=== PATIENT | female | born 1955 | race Caucasian/White ===

== ENCOUNTER 2019-06-20 17:09 | Inpatient (IN) | payer MEDICARE, OTHER ==
[~2019-06-20] VITALS: Ht 175.3 cm; Wt 96.2 kg
[~2019-06-20 17:09] MED LIST: DULO-31 PO; ESTR1PAT; HYDR2TAB28 PO; LORA1TAB PO; PROG100C11 PO; THY60T PO; TOP100T PO
[2019-06-20 17:46] LABS: BASOPHILS % (AUTO) 0.3 % (0-1); EOSINOPHILS % (AUTO) 0.3 % (0-6); HEMATOCRIT 39.5 % (35.0-45.0); HEMOGLOBIN 13.2 g/dl (12.0-16.0); LYMPHOCYTES # (AUTO) 1.3 X10'3 (1.1-4.8); LYMPHOCYTES % (AUTO) 10.7 % (21-51); MEAN CORPUSCULAR HEMOGLOBIN 28.4 PG (27.0-31.0); MEAN CORPUSCULAR HGB CONC 33.5 g/dL (33.0-36.5); MEAN CORPUSCULAR VOLUME 84.7 FL (78-98); MEAN PLATELET VOLUME 9.8 FL (7.4-10.4); MONOCYTES # (AUTO) 0.6 X10'3 (0-0.9); MONOCYTES % (AUTO) 5.1 % (2-12); NEUTROPHILS % (AUTO) 83.6 % (42-75); PLATELET COUNT 217 X10'3 (140-440); RED BLOOD COUNT 4.66 X10'6 (4.20-5.60); RED CELL DISTRIBUTION WIDTH 13.4 % (11.5-14.5); WHITE BLOOD COUNT 11.9 X10'3 (4.5-11.0)
[2019-06-20 18:01] LABS: ALANINE AMINOTRANSFERASE 30 U/L (12-78); ALBUMIN 3.9 G/DL (3.4-5.0); ALBUMIN/GLOBULIN RATIO 1.2 (1.1-1.5); ALKALINE PHOSPHATASE 91 IU/L (46-116); AMYLASE 63 U/L (25-115); ANION GAP 4 (8-16); ASPARTATE AMINO TRANSFERASE 13 U/L (10-37); BILIRUBIN,TOTAL 0.2 MG/DL (0.1-1.0); BLOOD UREA NITROGEN 17 MG/DL (7-18); BUN/CREATININE RATIO 15.3 (6.6-38.0); CALCIUM 9.1 MG/DL (8.5-10.1); CHLORIDE 103 MMOL/L (99-107); CREATININE 1.11 MG/DL (0.40-0.90); GLUCOSE 103 MG/DL (70-104); LIPASE 106 U/L (73-393); SODIUM 137 MMOL/L (135-145); TOTAL CARBON DIOXIDE 30.3 MMOL/L (24-32); TOTAL PROTEIN 7.2 G/DL (6.4-8.2); eGFR 49 ML/MIN
[2019-06-20 18:49] LABS: CLARITY,URINE CLEAR (Clear); COLOR,URINE STRAW (Yellow); GLUCOSE, URINE NEGATIVE (Neg); KETONES,URINE NEGATIVE (Neg); LEUKOCYTE ESTERASE ,URINE NEGATIVE (Neg); NITRITES, URINE NEGATIVE (Neg); OCCULT BLOOD,URINE SMALL (Neg); PROTEIN,URINE NEGATIVE (Neg); UROBILINOGEN,URINE 0.2 E.U/dL (0.2-1.0)
[2019-06-20 18:50] LABS: UA COLLECTION TYPE CLN CATCH MIDSTREAM
[2019-06-20 18:57] LABS: BACTERIA,URINE NONE SEEN /HPF (Neg); RBC,URINE 0-2 /HPF (0-2); WBC,URINE NONE SEEN /HPF (0-4)
[2019-06-20 18:58] LABS: SQUAMOUS EPITHELIAL CELL,UR NONE SEEN /LPF (FEW)
[2019-06-20] MEDS ORDERED: ketorolac trometh. 30mg/ml inj. IM ONE (19:15)
[2019-06-20] MEDS ORDERED: normal saline 1000ML IV soln IVB ONE (22:00)
[2019-06-20] MEDS ORDERED: morphine 2 MG/ML inj. syringe IV ONE ×2 (22:50)
[2019-06-20] MEDS ORDERED: iohexol 300mg/ml 100ml inj. ONE (23:08)
[2019-06-21] VITALS (15 sets, daily range): BP systolic 129–187; BP diastolic 62–96
[2019-06-21] MEDS: piperacillin/tazo 3.375gm/50ml 50 ML IV SCH ×3 (00:11→15:26)
[2019-06-21] MEDS ORDERED: ondansetron/PF 4mg/2ml inj IV PRN ×3 (00:40→17:40)
[2019-06-21] MEDS ORDERED: salt irrigation nasal spray 45 ML SPRAY NS PRN (00:55)
[2019-06-21] MEDS: normal saline 1000ml 1,000 ML IV SCH ×3 (01:05→20:37)
--- NOTE | 2019-06-21 01:48 | NUR ---
Patient in room ED 2. I have received report from [facility] and had the opportunity to ask questions and assume patient care.
[2019-06-21] MEDS ORDERED: SYN0.088T PO (02:15)
[2019-06-21] MEDS ORDERED: ARIP10TA15 PO (02:17)
[2019-06-21] MEDS ORDERED: QUET400T5 PO (02:17)
[2019-06-21] MEDS: morphine 2 MG/ML inj. syringe IV PRN ×5 (02:46→20:35)
[2019-06-21 04:53] LABS: BASOPHILS % (AUTO) 0.6 % (0-1); EOSINOPHILS % (AUTO) 0.3 % (0-6); HEMATOCRIT 40.7 % (35.0-45.0); LYMPHOCYTES # (AUTO) 1.3 X10'3 (1.1-4.8); LYMPHOCYTES % (AUTO) 16.5 % (21-51); MEAN CORPUSCULAR HEMOGLOBIN 28.7 PG (27.0-31.0); MEAN CORPUSCULAR HGB CONC 34.3 g/dL (33.0-36.5); MEAN CORPUSCULAR VOLUME 83.6 FL (78-98); MEAN PLATELET VOLUME 10.1 FL (7.4-10.4); MONOCYTES # (AUTO) 0.3 X10'3 (0-0.9); MONOCYTES % (AUTO) 4.1 % (2-12); NEUTROPHILS # (AUTO) 6.3 X10'3 (1.8-7.7); NEUTROPHILS % (AUTO) 78.5 % (42-75); PLATELET COUNT 219 X10'3 (140-440); RED BLOOD COUNT 4.87 X10'6 (4.20-5.60); RED CELL DISTRIBUTION WIDTH 13.6 % (11.5-14.5)
[2019-06-21 05:10] LABS: ALBUMIN 3.9 G/DL (3.4-5.0); ANION GAP 7 (8-16); BLOOD UREA NITROGEN 12 MG/DL (7-18); BUN/CREATININE RATIO 10.8 (6.6-38.0); CHLORIDE 105 MMOL/L (99-107); CREATININE 1.11 MG/DL (0.40-0.90); GLUCOSE 95 MG/DL (70-104); POTASSIUM 3.8 MMOL/L (3.5-5.1); SODIUM 140 MMOL/L (135-145); TOTAL CARBON DIOXIDE 28.4 MMOL/L (24-32); eGFR 49 ML/MIN
--- NOTE | 2019-06-21 06:10 | NUR ---
Problems reprioritized. Patient report given, questions answered & plan of care reviewed with [facility] Luke.
[2019-06-21] MEDS ORDERED: metroNIDAZOLE-Flagyl 500mg/NS 100 ML IV SCH (08:00)
[2019-06-21] MEDS ORDERED: levoFLOXACIN-Levaquin 500mg/D5 100 ML IV SCH (08:00)
--- NOTE | 2019-06-21 11:14 | NUR ---
patient reported redness following vein after levaquin began infusing. Stopped infusion immediately. notified. Jeny Miller.
[2019-06-21] MEDS ORDERED: LEVO100T9 PO (12:16)
[2019-06-21] MEDS ORDERED: LIOT25TA12 PO (12:20)
[2019-06-21] MEDS ORDERED: BUPIVAcaine/PF 2.5 mg/ml (0.25%) 30ml vial ONE (16:25)
[2019-06-21] MEDS ORDERED: LIDOcaine 1% 30ml preserv. free vial ONE (16:25)
--- NOTE | 2019-06-21 16:35 | NUR ---
Report called to [facility]ORTER in recovery
[2019-06-21] MEDS ORDERED: ringers solution, lacted 1,000 ML IV SCH (16:41)
[2019-06-21] MEDS ORDERED: ceFOXitin 2 GM ADDVANTGE BAG 50 ML IV ONE (16:45)
[2019-06-21] MEDS ORDERED: meperidine/PF 25mg/ml syringe IV PRN ×3 (16:45)
[2019-06-21] MEDS ORDERED: morphine 4 MG/ML inj SYRINge IV PRN ×2 (16:45)
[2019-06-21] MEDS ORDERED: proCHLORperazine 10 MG/2 ml inj IV PRN (16:45)
[2019-06-21] MEDS ORDERED: sevoflurane 250ml liquid IH ONE (16:46)
[2019-06-21] MEDS ORDERED: midazolam 2 mg/2 ml injection ONE (16:52)
[2019-06-21] MEDS ORDERED: fentaNYL/PF 50MCG/1 ML 2ML syringe ONE (16:52)
[2019-06-21] MEDS ORDERED: rocuronium 10mg/ml inj IV ONE (16:53)
[2019-06-21] MEDS ORDERED: propofol inj 20 ML IV ONE (16:53)
[2019-06-21] MEDS ORDERED: sugammadex 200mg/2ml injection IV ONE (17:23)
--- NOTE | 2019-06-21 17:40 | NUR ---
Received from OR via BED , accompanied by Anesthesiologist DR ROBLES and report given by Anesthesiolgist. PATIENT WAKING UP, DENIES PAIN, V/S WNL, NEUROVASCULAR CHECKS INTACT, 20G PIV LUE, SCD ON, BANDAIDS TO LAP SIGHTS OF ABDOMEN CDI.
[2019-06-21] MEDS ORDERED: HYDR-4383 PO (17:44)
--- NOTE | 2019-06-21 17:56 | NUR ---
Report received from [facility] WILLETT in recovery.
--- NOTE | 2019-06-21 18:15 | NUR ---
Problems reprioritized. Patient report given, questions answered & plan of care reviewed with Shantel RN.
--- NOTE | 2019-06-21 18:20 | NUR ---
PATIENT A&OX4, DENIES PAIN, V/S WNL, NEUROVASCULAR CHECKS INTACT, 20G PIV LUE, SCD ON, BANDAIDS TO LAP SIGHTS OF ABDOMEN CDI. PATIENT TAKEN TO 360A WITH ALL BELONGINGS AND HOOKED UP TO MONITORS IN ROOM AND REPORT GIVEN TO RN WHO HAS TAKEN OVER PATIENT CARE.
[2019-06-21] MEDS: HYDROmorphone 2mg tablet PO SCH (20:00)
[2019-06-22] VITALS: BP_SYST 141; BP_SYST 150; BP_DIAS 75; BP_DIAS 89
[2019-06-22] MEDS: piperacillin/tazo 3.375gm/50ml 50 ML IV SCH ×2 (00:37→07:51)
[2019-06-22] MEDS: normal saline 1000ml 1,000 ML IV SCH (00:37)
[2019-06-22] MEDS: morphine 2 MG/ML inj. syringe IV PRN (00:47)
[2019-06-22] MEDS: HYDROmorphone 2mg tablet PO SCH ×2 (02:00→05:57)
[2019-06-22 04:00] VITALS: BP 140/82
[2019-06-22 06:31] LABS: ALBUMIN 3.1 G/DL (3.4-5.0); ANION GAP 6 (8-16); BLOOD UREA NITROGEN 10 MG/DL (7-18); BUN/CREATININE RATIO 9.7 (6.6-38.0); CALCIUM 8.6 MG/DL (8.5-10.1); CHLORIDE 107 MMOL/L (99-107); CREATININE 1.03 MG/DL (0.40-0.90); GLUCOSE 115 MG/DL (70-104); POTASSIUM 3.8 MMOL/L (3.5-5.1); SODIUM 139 MMOL/L (135-145); TOTAL CARBON DIOXIDE 26.5 MMOL/L (24-32); eGFR 54 ML/MIN
[2019-06-22 06:38] LABS: BASOPHILS % (AUTO) 0.4 % (0-1); EOSINOPHILS % (AUTO) 0.2 % (0-6); HEMATOCRIT 35.1 % (35.0-45.0); HEMOGLOBIN 11.9 g/dl (12.0-16.0); LYMPHOCYTES # (AUTO) 1.3 X10'3 (1.1-4.8); LYMPHOCYTES % (AUTO) 17.5 % (21-51); MEAN CORPUSCULAR HEMOGLOBIN 28.5 PG (27.0-31.0); MEAN CORPUSCULAR VOLUME 83.8 FL (78-98); MEAN PLATELET VOLUME 10.1 FL (7.4-10.4); MONOCYTES # (AUTO) 0.5 X10'3 (0-0.9); MONOCYTES % (AUTO) 7.2 % (2-12); NEUTROPHILS # (AUTO) 5.4 X10'3 (1.8-7.7); NEUTROPHILS % (AUTO) 74.7 % (42-75); PLATELET COUNT 211 X10'3 (140-440); RED BLOOD COUNT 4.18 X10'6 (4.20-5.60); RED CELL DISTRIBUTION WIDTH 13.9 % (11.5-14.5); WHITE BLOOD COUNT 7.2 X10'3 (4.5-11.0)
[2019-06-22 07:35] VITALS: BP 141/77
[2019-06-22] MEDS ORDERED: ARIPIPRAZOLE 10 MG TABLET PO SCH (08:00)
--- NOTE | 2019-06-22 10:52 | NUR ---
SPOKE WITH HOSPITALIST AFTER ROUNDING ON PATIENT. HE IS OKAY TO PROCEED WITH DISCHARGE REQUESTED BY DR SEGURA.
--- NOTE | 2019-06-22 11:15 | NUR ---
Patient stable and appropriate for discharge home with family. IV removed. All belongings taken from room. Pain medication script given to patient. Discharge instructions given and reviewed with patient.
== END 2019-06-22 11:15 | disposition home or self-care (01) | DRG 342 ==
LOC: ER 17:09 → ED HOLD 06-21 00:48 → SUR 3N 06-21 02:30
PROVIDERS: ADMIT Internal Medicine; ATTEND Surgery
PROC: BW211ZZ Computerized Tomography (CT Scan) of Abdomen and Pelvis using Low Osmolar Contrast (ICD-10-PCS; 2019-06-20)
PROC: 0DTJ4ZZ Resection of Appendix, Percutaneous Endoscopic Approach (ICD-10-PCS; principal; 2019-06-21 16:46)
DX: K35.80 Unspecified acute appendicitis (principal); G90.50 Complex regional pain syndrome I, unspecified; E03.9 Hypothyroidism, unspecified; F32.9 Major depressive disorder, single episode, unspecified; F41.9 Anxiety disorder, unspecified; I10 Essential (primary) hypertension; E66.9 Obesity, unspecified; Z68.31 Body mass index [BMI] 31.0-31.9, adult; Z79.899 Other long term (current) drug therapy; Z79.890 Hormone replacement therapy
CPT/HCPCS: 36415; 74177; 76856; 80048; 80053; 81001; 81025; 82150; 82948; 83690; 85025; 85730; 87081; 88304; 93005; 96361; 96372; 96374; 99285; A4215; A4618; A7000; C9399; G0378; J0694; J1885; J1956; J2001; J2175; J2250; J2270; J2405; J2543; J2704; J3010; J3490; J7030; J7120; Q9967

== ENCOUNTER 2024-10-13 09:59 | Emergency (ER) | payer BC, MEDICARE, OTHER ==
[~2024-10-13] VITALS: Ht 175.3 cm; Wt 73.0 kg
[~2024-10-13 09:59] MED LIST changes: +ARIP10TA15 PO; -DULO-31 PO; -ESTR1PAT; +HYDR-4383 PO; +LEVO100T9 PO; +LIDO700A32 TOP; +LIOT25TA12 PO; -LORA1TAB PO; -PROG100C11 PO; +QUET400T5 PO; -THY60T PO; -TOP100T PO
[2024-10-13 10:01] VITALS: TEMP 98.5
[2024-10-13 11:19] VITALS: BP 160/78; PULSE 62; RESP 16; O2SAT 99
== END 2024-10-13 11:58 | disposition home or self-care (01) ==
LOC: ER 10:00
DX: R51.9 Headache, unspecified (principal); M54.9 Dorsalgia, unspecified; M54.2 Cervicalgia; E03.9 Hypothyroidism, unspecified; F41.9 Anxiety disorder, unspecified; Z88.1 Allergy status to other antibiotic agents; Z91.040 Latex allergy status; Z79.899 Other long term (current) drug therapy
CPT/HCPCS: 70450; 99284